=== PATIENT | female | born 1960 | race African-American/Black ===

== ENCOUNTER 2016-08-01 17:45 | Inpatient (IN) | payer MEDICAID ==
--- NOTE | 2016-08-01 18:21 | RAD ---
EXAM DESCRIPTION: XR CHEST 1 VIEW CLINICAL HISTORY: 55-year-old female with shortness of Breath. COMPARISON: 08/24/2015. TECHNIQUE: Single AP view of the chest was obtained portably. FINDINGS: Stable prominent cardiac mediastinal silhouette is within normal limits. Mild cardiomegaly. Interstitial prominence raising the concern for pulmonary vascular congestion and edema. No gross pneumothoraces or large pleural effusions. Left basilar opacification may be secondary to subsegmental atelectasis versus consolidation. Tracheostomy tube terminates at the level of the thoracic inlet. The visualized bones are within normal limits. IMPRESSION: 1. Cardiomegaly and interstitial, central pulmonary vascular prominence raising the concern for pulmonary vascular congestion, edema. 2. Left basilar opacity may be secondary to subsegmental atelectasis versus consolidation. Please correlate with patient clinical findings and followup for resolution. Electronically signed by: Karyn Chen MD 08/01/2016 18:20
[2016-08-01] MEDS ORDERED: cefTRIAXone SODIUM 1 GM VIAL IM ONE (18:53)
[2016-08-01] MEDS ORDERED: SULFA/TRIMETH 800/160 (DS) TAB 1 EA TAB PO ONE (18:53)
--- NOTE | 2016-08-01 18:53 | ED.PDOC ---
History of Present Illness - General Chief Complaint: Neuro Symptoms/Deficits Stated Complaint: Altered mental status Time Seen by Provider: 08/01/16 17:52 Source: patient, EMS notes reviewed, group home records Exam Limitations: no limitations - History of Present Illness Initial Comments: the patient is a 55-year-old Afro-Tu[place] female presenting to emergency room secondary to just not acting right. skilled nursing staff reports she's not been as active today she normally is. She does have a known urinary tract infection which has not had antibiotics started on it. The patient converses quite well. She is able to give me a bunch of her medical history. She states she is feeling pretty well. She has been getting up and assisting with her own care. She is alert and oriented 4. No nausea or vomiting. No shortness of breath. No chest pain. Urinalysis was collected on the and the culture has grown out Escherichia coli sensitive to Bactrim. Timing/Duration: unsure Severity: mild Improving Factors: nothing Worsening Factors: nothing Allergies/Adverse Reactions: Allergies NO KNOWN ALLERGY Allergy (Verified 08/24/15 11:50) Home Medications: Ambulatory Orders ALPRAZolam [Xanax] 0.25 mg PEG Q8H PRN 08/24/15 Atorvastatin Calcium [Lipitor] 10 mg PEG BEDTIME 08/24/15 Diphenhydramine HCl [Complete Allergy] 25 mg PEG Q6H PRN 08/24/15 Esomeprazole Magnesium [Nexium] 40 mg PEG DAILY 08/24/15 Furosemide [Lasix] 120 mg PEG BID 08/24/15 Guaifenesin 400 mg PEG TID 08/24/15 Ipratropium/Albuterol [Duoneb] 3 ml NEB QID 08/24/15 Levetiracetam [Keppra] 500 mg PEG BID 08/24/15 Levofloxacin [Levaquin] 750 mg PO DAILY #7 tab 08/24/15 Levothyroxine Sodium 88 mcg PEG DAILY 08/24/15 Metoprolol Succinate [Metoprolol Succinate ER] 12.5 mg PEG BID 08/24/15 Phenytoin Sodium Cap [Dilantin Cap] 300 mg PEG BID 08/24/15 Zolpidem Tartrate 5 mg PEG BEDTIME 08/24/15 Sulfamethoxazole-Trimethoprim [Bactrim Ds 800-160 mg] 1 tab PO BID #14 tab 08/01 Review of Systems - Review of Systems Review of Systems: 08/01/16 18:52 for new symptoms as reported by the patient Constitutional: States: malaise EENTM: States: no symptoms reported Respiratory: States: no symptoms reported Cardiology: States: no symptoms reported Gastrointestinal/Abdominal: States: no symptoms reported Genitourinary: States: no symptoms reported Musculoskeletal: States: no symptoms reported Skin: States: no symptoms reported Neurological: States: no symptoms reported All other Systems: No Change from Baseline Past Medical History (General) - Patient Medical History Hx Seizures: Yes - Takes Keppra and Dilantin at group home Hx Dementia: Yes Hx of COPD: Yes Hx Cardiac Disorders: Yes Hx Congestive Heart Failure: Yes Hx Pacemaker: No Hx Hypertension: Yes Hx Thyroid Disease: Yes Hx Diabetes: Yes - Humalog Hx Gastroesophageal Reflux: Yes Hx Renal Disease: Yes - Vaccination History Hx Influenza Vaccination: Yes Hx Pneumococcal Vaccination: Yes - Social History Hx Tobacco Use: No Hx Alcohol Use: No Hx Substance Use: No Hx Substance Use Treatment: No Hx Depression: No - Activities of Daily Living [facility] (if applicable[facility]:: [facility] - Triage Comment ED Triage Comment: Unable to get an accurate reason for patient coming to the ER. No neuro deficits observed. Family Medical History - Family History Mother Family History: Unknown Living Status: Hx Family Hypertension: Yes Hx Family Diabetes: Yes Physical Exam - Physical Exam General Appearance: Alert, Comfortable, No apparent distress Eye Exam: bilateral normal Ears, Nose, Throat: normal ENT inspection - poor dentition Neck: non-tender, full range of motion, supple, other - trach is in place Respiratory: chest non-tender, lungs clear, normal breath sounds, no respiratory distress, no accessory muscle use Cardiovascular/Chest: normal peripheral pulses, no edema, other - regular rate Peripheral Pulses: radial,right: 2+, radial,left: 2+ Gastrointestinal/Abdominal: non tender - morbidly obese, soft Rectal Exam: deferred Back Exam: normal inspection - no open lesions Extremity: normal range of motion, non-tender, normal capillary refill, pedal edema - hronic Neurologic: alert, normal mood/affect, oriented x 3 Skin Exam: normal color Comments: Vital Signs - 24 hr 08/01/16 18:24 Temperature 97.3 F L Pulse Rate [ 76 Apical] Respiratory 22 Rate Blood Pressure 94/58 [Right Arm] O2 Sat by Pulse 95 Oximetry repeat blood pressure 117/49 Progress - Progress Progress: 08/01/16 18:54 the patient is a 55-year-old Tu[place] female presenting with a mildly altered mental status according to group home staff. She is alert and oriented 4 currently and pleasantly interactive. She does have urinary tract infection that has not had treatment started. She received a dose of Bactrim here as well as a dose of Rocephin here. Urine culture has grown out Escherichia coli sensitive to Bactrim and she will be placed on that for a seven-day period she does have a very mild worsening of her chronic renal insufficiency and needs to have a repeat Chem-8 performed in 1-2 weeks. She did also have a very mildly elevated potassium level that also needs to be checked on in that timeframe. I do not see any diuretics on her medication list sent here however if she is on any then these need to be held for the next 2-3 days. she needs to increase her fluid intake. She needs to have a repeat urinalysis performed in 2 weeks. ER warnings were given for any worsening. 08/01/16 18:58 - Results/Orders Results/Orders: Laboratory Tests 08/01/16 18:07 WBC 3.8 L RBC 3.88 L Hgb 11.1 L Hct 36.2 MCV 93.2 MCH 28.6 MCHC 30.8 L RDW 14.5 Plt Count 144 MPV 8.4 Absolute Neuts (auto) 2.20 Absolute Lymphs (auto) 0.80 L Absolute Monos (auto) 0.50 Absolute Eos (auto) 0.20 Absolute Basos (auto) 0.00 Neutrophils % 56.8 Lymphocytes % 22.2 Monocytes % 14.1 H Eosinophils % 6.2 H Basophils % 0.7 Sodium 137 Potassium 5.4 H Chloride 98 L Carbon Dioxide 33 H Anion Gap 11.4 L BUN 61 H Creatinine 1.58 H BUN/Creatinine Ratio 38.6 H Random Glucose 80 Serum Osmolality 290.1 Calcium 8.7 Magnesium 2.6 H Total Bilirubin 0.9 AST 14 ALT 12 Alkaline Phosphatase 256 H Creatine Kinase 14 L CK-MB (CK-2) 0.3 CK-MB (CK-2) % Not Reportable Troponin I 0.03 Serum Total Protein 7.2 Albumin 2.9 L Globulin 4.3 H Albumin/Globulin Ratio 0.7 L Phenytoin 7.4 L Urine culture has grown out Escherichia coli sensitive to Bactrim Departure - Departure Clinical Impression: Cystitis Acute renal failure Qualifiers: Acute renal failure type: unspecified Qualifier Code: (N17.9) Acute kidney failure, unspecified Disposition: Discharge to SNF Condition: Fair Departure Forms: ED Discharge - Pt. Copy, Patient Portal Self Enrollment Instructions: DI for Urinary Tract Infection (UTI) Diet: diabetic diet Activity: increase activity as tolerated Referrals: YINA WORLEY [Primary Care Provider] - 1-5 Days Prescriptions: Sulfamethoxazole-Trimethoprim [Bactrim Ds 800-160 mg] 1 tab PO BID #14 tab Home Medications: Ambulatory Orders ALPRAZolam [Xanax] 0.25 mg PEG Q8H PRN 08/24/15 Atorvastatin Calcium [Lipitor] 10 mg PEG BEDTIME 08/24/15 Diphenhydramine HCl [Complete Allergy] 25 mg PEG Q6H PRN 08/24/15 Esomeprazole Magnesium [Nexium] 40 mg PEG DAILY 08/24/15 Furosemide [Lasix] 120 mg PEG BID 08/24/15 Guaifenesin 400 mg PEG TID 08/24/15 Ipratropium/Albuterol [Duoneb] 3 ml NEB QID 08/24/15 Levetiracetam [Keppra] 500 mg PEG BID 08/24/15 Levofloxacin [Levaquin] 750 mg PO DAILY #7 tab 08/24/15 Levothyroxine Sodium 88 mcg PEG DAILY 08/24/15 Metoprolol Succinate [Metoprolol Succinate ER] 12.5 mg PEG BID 08/24/15 Phenytoin Sodium Cap [Dilantin Cap] 300 mg PEG BID 08/24/15 Zolpidem Tartrate 5 mg PEG BEDTIME 08/24/15 Sulfamethoxazole-Trimethoprim [Bactrim Ds 800-160 mg] 1 tab PO BID #14 tab 08/01 Additional Instructions: the patient is a 55-year-old Tuval[place] female presenting with a mildly altered mental status according to group home staff. She is alert and oriented 4 currently and pleasantly interactive. She does have urinary tract infection that has not had treatment started. She received a dose of Bactrim here as well as a dose of Rocephin here. Urine culture has grown out Escherichia coli sensitive to Bactrim and she will be placed on that for a seven-day period she does have a very mild worsening of her chronic renal insufficiency and needs to have a repeat Chem-8 performed in 1-2 weeks. She did also have a very mildly elevated potassium level that also needs to be checked on in that timeframe. I do not see any diuretics on her medication list sent here however if she is on any, then these need to be held for the next 2-3 days. she needs to increase her fluid intake. She needs to have a repeat urinalysis performed in 2 weeks. ER warnings were given for any worsening.
[2016-08-01] MEDS ORDERED: LIDOCAINE 1% 10 ML VIAL INJ ONE (19:16)
[2016-08-01] MEDS ORDERED: LACTATED RINGERS 500 ML IVS ONE (21:43)
--- NOTE | 2016-08-01 22:13 | HP ---
SUPERVISING PHYSICIAN: Sushil Ramirez M.D. CHIEF COMPLAINT: Altered mental status. HISTORY OF PRESENT ILLNESS: This is a 55 year-old female patient who is a resident of [facility] and has been there since October or November of 2015. She has a history of Pickwickian syndrome. It was reported today that the patient had not been participating in her normal activities. She also had somewhat of a change in her mental status. She has a known urinary tract infection but antibiotics have not been started. Her culture and sensitivity came with her to the Emergency Room. The culture grew out Escherichia coli. It is sensitive to Ceftriaxone and resistant to Levofloxacin. I believe that she had been previously prescribed Levofloxacin, but it had not been started. Her daughter was in the E. R. and she told the staff that her mother has not been on the ventilator for over 1 year. She does have a tracheostomy that is capped and she does have a feeding tube. The daughter states that when she becomes unresponsive or acts like her presentation, she frequently has elevated CO2. Her carbon dioxide is usually around 55 to 60%. ABGs were done and her PCO2 was 87% with a pH of 7.2. She was placed on the BiPAP and given several breathing treatments, and her level of consciousness improved. I was called for admission to the hospital. PAST MEDICAL HISTORY: 1. Chronic respiratory failure with hypercapnia. 2. Type 2 diabetes mellitus without complications. 3. Hyperlipidemia. 4. Hypertension. 5. Pulmonary embolism. 6. Unspecified convulsions. 7. Gastroesophageal reflux disease. 8. Age-related osteoporosis. 9. Hypothyroidism. 10. Heart failure of unknown etiology with no echocardiogram on the chart. 11. Chronic kidney disease, unspecified. 12. Chronic obstructive pulmonary disease. 13. Obesity. 14. Atrial flutter. 15. History of pneumonia. 16. History of urinary tract infections. PAST SURGICAL HISTORY: 1. Tracheostomy. 2. Feeding tube. OUTPATIENT MEDICATIONS: Per the EMR and awaiting verification. ALLERGIES: NO KNOWN DRUG ALLERGIES. SOCIAL HISTORY: She lives at [facility]. She does not smoke. She denies any ETOH use. Over 20 years ago she did use illegal drugs. She is from [facility]. REVIEW OF SYSTEMS: Denies fatigue, fever or weight changes. HEENT: Denies sinus problems, ear pain, vision changes or sore throat. RESPIRATORY: Complains of some shortness of breath and mild cough, otherwise denies wheezing. CARDIAC: Denies chest pain, palpitations or tachycardia. ABDOMEN: Denies abdominal pain, nausea, vomiting or diarrhea. EXTREMITIES: She is bedfast but denies any swelling or extremity pain. NEUROLOGIC: She states she has had seizures in the past but has not had them in many years. She denies headaches or dizziness. SKIN: She complains of pain in her sacral area. She said she has had a decubitus ulcer in the past. Her buttocks becomes quite painful. PHYSICAL EXAMINATION: VITAL SIGNS: She is afebrile. Heart rate 73, blood pressure 94/68, respiratory rate 22, O2 sat is 95%. GENERAL: This is a 55 year-old obese black female who is in no acute distress. HEENT: Normocephalic and atraumatic. Pupils are equal and reactive. Oropharynx is clear. NECK: Supple without mass. She does have a tracheostomy in place. CHEST: Lungs are diminished bilaterally. She does have some rhonchi more so in the left upper, middle and lower lobe more so than in the right. There is equal rise and fall of the chest with inspiration and expiration. CARDIOVASCULAR: Regular rate and rhythm. Sinus rhythm on the threat monitoring analyst. ABDOMEN: Soft, nondistended, non-tender. Bowel sounds are positive. She does have a feeding tube in place. EXTREMITIES: Somewhat flaccid. She does have gross motor movements. NEUROLOGIC: She is awake, alert and oriented times three. RADIOLOGY: Chest x-ray shows left basilar opacity may be secondary to subsegmental atelectasis versus consolidation. She has cardiomegaly and interstitial pulmonary vascular prominence raising the concern for pulmonary edema. LABORATORY: PCO2 is 87, pH 7.2. Potassium 5.4, chloride 98, carbon dioxide 33 , BUN 61, creatinine 1.58, magnesium 2.6. Alkaline phosphatase 256. Creatinine kinase 14, albumin 2.9. WBC 3.8, hemoglobin 11.1, hematocrit 36.2, platelets 144. Phenytoin 7.4. Urine culture and sensitivity is on the chart. It is positive for Escherichia coli and sensitive to Ceftriaxone. All other labs and films have been reviewed via the EMR. ASSESSMENT: 1. Acute on chronic hypercarbic respiratory failure. 2. Urinary tract infection with culture and sensitivity showing Escherichia coli sensitive to Rocephin. 3. Left lower lobe pneumonia. 4. Altered mental status. 5. History of Pickwickian syndrome previously on the ventilator for an extended amount of time but has had no mechanical ventilation for greater than 1 year. 6. Open sacral ulcer. 7. Renal insufficiency. 8. Elevated liver enzymes. 9. Hyperkalemia and hypermagnesemia most likely secondary to her renal issues. PLAN: We will admit the patient to the hospital. She will be placed on BiPAP. In the E. R., she could not tolerate it and she pulled off her mask. I will give her light sedation and we will see if we can increase her respiratory rate to where we can pull off some of the CO2. Will also give her Rocephin and Zithromax. Will repeat lab in the morning as well as an ABG. May be beneficial to find her echocardiogram as she has a history of congestive heart failure, but we have no echocardiogram. We will encourage good pulmonary toilet. Monitor the patient closely. Followup as indicted. Hopefully we can send her back to [facility] on p.o[facility]. I have also started some breathing treatments on her as well as sliding scale insulin. Dr. Ramirez is the collaborating physician available for consultation. #[id number] [facility]
[2016-08-01] MEDS ORDERED: ALBUTEROL SULFATE 2.5 MG/3 ML VIAL NEB PRN (23:37)
[2016-08-01] MEDS ORDERED: cefTRIAXone SODIUM 1 GM in SODIUM CHL 0.9% 50ML MIN-BAG+ 50 ML IVPB SCH (23:45)
[2016-08-01] MEDS ORDERED: ENOXAPARIN SODIUM 40 MG/0.4 ML SYG SUBCU SCH (23:45)
[2016-08-01] MEDS ORDERED: IPRATROPIUM/ALBUTEROL 3 ML VIAL INH SCH (23:45)
[2016-08-01] MEDS ORDERED: IV SET AND CAP CHANGE INJ INJ SCH (23:45)
[2016-08-02] MEDS ORDERED: GLUCAGON INJ 1 MG VIAL SUBCU PRN (00:11)
[2016-08-02] MEDS ORDERED: DEXTROSE 50% 25 GM/50 ML SYG IV PRN (00:11)
--- NOTE | 2016-08-02 00:14 | PCM.CORE ---
Physician DVT/VTE - Prophylaxis Currently: Patient already on anticoagulation therapy - Nurse DVT Assessment & Total Each Risk Factor Represents 2 Points: Major Surgery >45 minutes, Confined to bed >72 hours Each Risk Factor Represents 1 Point: Age 41-60 Each Risk Factor is 1 Point: Obesity (BMI >25) DVT Assessment Score: 6 - 5 or more Very High Risk Treatments: Sequential Compression Device - pt unable to ambulate
[2016-08-02] MEDS ORDERED: AZITHROMYCIN IV 500 MG in SODIUM CHLORIDE 0.9% 250ML 250 ML IVPB SCH (01:00)
[2016-08-02] MEDS ORDERED: SODIUM CHL 0.9% 50ML MIN-BAG+ 50 ML IVPB ONE ×3 (01:05→16:50)
[2016-08-02] MEDS ORDERED: cefTRIAXone SODIUM 1 GM VIAL ONE (01:06)
[2016-08-02] MEDS ORDERED: SODIUM CHLORIDE 0.9% 250ML 250 ML ONE (01:08)
[2016-08-02] MEDS ORDERED: AZITHROMYCIN IV 500 MG VIAL IVPB ONE (01:08)
[2016-08-02] MEDS: SODIUM CHLORIDE 0.9% (FLUSH) 10 ML SYG IV PRN ×2 (01:36→06:01)
[2016-08-02] MEDS ORDERED: cefTRIAXone SODIUM 1 GM in SODIUM CHL 0.9% 50ML MIN-BAG+ 50 ML IVPB SCH (06:00)
[2016-08-02] MEDS: INSULIN LISPRO 100 UNITS/ML PEN SUBCU SCH ×4 (07:24→21:26)
[2016-08-02] MEDS ORDERED: PANTOPRAZOLE SODIUM IV 40 MG VIAL IV SCH (08:30)
[2016-08-02] MEDS: SODIUM CHLORIDE 0.9% (FLUSH) 10 ML SYG IV SCH ×2 (08:45→21:25)
[2016-08-02] MEDS ORDERED: PANTOPRAZOLE INJECTION 40 MG in SODIUM CHLORIDE 0.9% 100ML 100 ML IVPB SCH (09:00)
[2016-08-02] MEDS: IPRATROPIUM/ALBUTEROL 3 ML VIAL NEB SCH ×4 (09:05→20:58)
[2016-08-02] MEDS ORDERED: MEROPENEM 500 MG VIAL IVPB ONE ×2 (10:35→16:50)
[2016-08-02] MEDS ORDERED: METHOCARBAMOL 750 MG TAB PO ONE (10:57)
[2016-08-02] MEDS: MEROPENEM 500 MG in SODIUM CHL 0.9% 50ML MIN-BAG+ 50 ML IVPB SCH ×2 (11:00→18:30)
--- NOTE | 2016-08-02 12:27 | PN ---
DATE: 08/02/16 SUBJECTIVE: The patient is resting but is able to awaken to gentle stimuli and is able to carry on a fairly good conversation. She appears to be a little more alert today than last evening on admission. Appetite is fair. She is on the BiPAP machine to assist with the elimination of excessive CO2 and on enough oxygen to try to avoid oversaturating her body to ensure adequate respiratory effort. No nausea and vomiting. senior user experience architect of shortness of breath at this time. OBJECTIVE: Afebrile, pulse 71, blood pressure 95/61, pulse oximetry 98% on BiPAP 32% decreased to a lower O2 level to prevent over saturation. Weight 130.14 kilos. LUNGS: Have some mild expiratory wheezing evident. No significant rales at this time. HEART: Tones somewhat distant. ABDOMEN: Soft yet obese. LABORATORY: Potassium is down from 5.4 to 5.1, CO2 stable at 33 while BUN is 63 , creatinine has improved to 1.24. Glucose 70. Osmolality normal at 294. Alkaline phosphatase improved to 225 and albumin 2.7. Urine culture is positive for Escherichia coli and Klebsiella pneumoniae species which show sensitivity primarily to Meropenem which will be treated for at least a couple of days and then switched over to a third generation cephalosporin for continuation of treatment. Levaquin is stopped and continued on Meropenem at the present time. ASSESSMENT: 1. Chronic obstructive pulmonary disease with significant elevated CO2 levels with hypercapnia requiring BiPAP support and hyperventilation to assist with resolution. 2. Acute urinary tract infection with Escherichia coli and highly resistant Klebsiella pneumoniae species possibly contributing to the altered level of consciousness. 3. Chest x-ray findings suggesting a community acquired left lower lobe infiltrate with treatment to continue. 4. Chronic renal failure with significant prerenal azotemic component with fluid hydration to continue. 5. Sacral ulcer probable decubitus in nature with special attention and wound care to continue. PLAN: Will continue with rotation and wound care to the sacral decubitus. Switch antibiotics from Rocephin and Zithromax to Meropenem to cover both the pneumonia and the dual infection in the urinary tract. Work on increasing strength and abilities, and then after a couple of days of treatment, consider continued treatment at the [facility]. Close followup suggested. #[id number] [facility]
[2016-08-02] MEDS: HYDROcodone 7.5MG/APAP 325MG 1 EA TAB PO PRN (12:47)
[2016-08-02] MEDS: ENOXAPARIN SODIUM 40 MG/0.4 ML SYG SUBCU SCH (21:24)
[2016-08-03] MEDS ORDERED: SODIUM CHL 0.9% 50ML MIN-BAG+ 50 ML IVPB ONE ×4 (02:07→19:17)
[2016-08-03] MEDS ORDERED: MEROPENEM 500 MG VIAL IVPB ONE ×4 (02:07→19:18)
[2016-08-03] MEDS: MEROPENEM 500 MG in SODIUM CHL 0.9% 50ML MIN-BAG+ 50 ML IVPB SCH ×3 (02:20→18:32)
[2016-08-03] MEDS: INSULIN LISPRO 100 UNITS/ML PEN SUBCU SCH ×4 (07:21→21:02)
[2016-08-03] MEDS: HYDROcodone 7.5MG/APAP 325MG 1 EA TAB PO PRN (07:22)
[2016-08-03] MEDS: IPRATROPIUM/ALBUTEROL 3 ML VIAL NEB SCH ×4 (08:25→20:27)
[2016-08-03] MEDS: SODIUM CHLORIDE 0.9% (FLUSH) 10 ML SYG IV SCH ×2 (09:15→20:36)
[2016-08-03] MEDS ORDERED: SOD POLYSTYRENE SULFONATE 15 GM/60 ML BTTL PO ONE (16:22)
[2016-08-03] MEDS ORDERED: ALPRAZolam 0.25 MG TAB PO PRN (16:55)
[2016-08-03] MEDS ORDERED: LEVOTHYROXINE SODIUM 0.088 MG TAB PO SCH (17:00)
--- NOTE | 2016-08-03 17:38 | PN ---
DATE: 08/03/16 SUBJECTIVE: The patient is sitting up in the bed. She has taken her BIPAP off, which is now being used primarily at bedtime and during the day as needed. She is fully awake, alert and communicative. She admits that she does not remember much about her arriving to the Emergency Room from [facility] on the day of admission. Her memory is back to normal today and she feels much better today. She is still encouraged to breathe deeply. Appetite is also improving. She notes she is on oxygen most of the time at the half-way and does not recall the actual amount of oxygen that is being delivered. She has had several spells in the past where her CO2 has been markedly elevated and this was one of the worst. She has not used the BIPAP machine in the past and I feel that the BIPAP machine has assisted her with the work of breathing and also assisted with the elimination of excessive carbon dioxide build up contributing to a lot of her symptoms. OBJECTIVE: VITAL SIGNS: Afebrile. Pulse 74. Blood pressure 107/68. Pulse oximetry reads 99% on BIPAP. Respiratory is specifically instructed to shoot for 90% to 92% instead of the higher percentages to assist with the prevention of hypoventilation. LUNGS: She does have some rhonchi. No significant rales at this time. HEART: Tones are somewhat distant. ABDOMEN: Soft and obese. No significant organomegaly noted. LABORATORY: White count down to 2,600, hemoglobin 10.4. Chemistries show potassium still 5.2, CO2 33, stable. BUN 51, creatinine down to 1.08. Osmolality normal. Glucose 66 fasting. TSH has not been drawn for about 3-1/2 years and will be repeated in the morning. Urine and blood cultures are negative thus far. Last chest x-ray did show some abnormalities and a repeat in the morning will be helpful before able to go home. Of note is that urine culture performed in October of last year showed a combination of E. coli and Klebsiella species. ASSESSMENT: 1. Chronic obstructive pulmonary disease with significantly elevated CO2 levels with hypercapnia requiring BIPAP support and hyperventilation to assist with resolution, symptomatic with decreased level of consciousness. 2. History of urinary tract infection with Escherichia coli and resistant Klebsiella species, which may have contributed to the altered level of consciousness, completing third day course of meropenem. 3. Chest x-ray findings suggesting left lower lobe infiltrate with repeat followup in the morning for clearing. 4. Chronic renal failure with significant prerenal azotemic component with fluid supplementation to continue. 5. Sacral ulcer, probable decubitus in with continued wound care and attention to be made. 6. Exogenous obesity, which also may contribute to some of the respiratory insufficiency. PLAN: The patient has shown some clinical improvement with the use of BIPAP administration. Respiratory department will determine the best settings for the BIPAP as the patient will be now be changed to h.s. and p.r.n. for application. We will have respiratory assist in allowing the patient to learn how to use a straw while the BIPAP is being used in case her mouth is dry and she needs a drink of water. The patient when she goes home is to go home with a mask and tubes of the BIPAP so these will be able to be continued at the [facility] to assist her in preventing this from recurring. Special attention upon her discharge home tomorrow to prevent oxygen over utilization which can contribute to the CO2 retention. Continue with bronchodilators and pulmonary hygiene. When she goes home tomorrow to [facility], we will ask physical therapy to evaluate and provide strengthening and activities of daily living training exercises to get her to the point to assist with weight reduction, but also improved ability to care for herself and reduce fall risk. Continue with sacral ulcer wound care at the half-way. Stop Merrem tomorrow and since urine culture has failed to show any significant growth to this point, we will also remove Stock catheter in the morning and will have continued followup at the half-way with repeat urinalysis in approximately two weeks. Recheck chest x-ray in the morning for clarification and reevaluation of previously noted infiltrates, left lower lobe. Close followup at [facility] by Dr. Michael. Continue with BIPAP utilization which hopefully will assist and close followup necessary. #[id number] [facility]
[2016-08-03] MEDS ORDERED: levETIRAcetam 250 MG TAB ONE (19:17)
[2016-08-03] MEDS: levETIRAcetam 250 MG TAB PO SCH (20:37)
[2016-08-03] MEDS: ENOXAPARIN SODIUM 40 MG/0.4 ML SYG SUBCU SCH (20:37)
[2016-08-03] MEDS: PHENYTOIN SODIUM 100 MG CAP PO SCH (20:37)
[2016-08-04] MEDS: MEROPENEM 500 MG in SODIUM CHL 0.9% 50ML MIN-BAG+ 50 ML IVPB SCH ×2 (02:30→10:35)
[2016-08-04] MEDS ORDERED: LEVOTHYROXINE SODIUM 0.088 MG TAB PO SCH (06:30)
[2016-08-04] MEDS ORDERED: SODIUM CHL 0.9% 50ML MIN-BAG+ 50 ML IVPB ONE (07:24)
[2016-08-04] MEDS ORDERED: MEROPENEM 500 MG VIAL IVPB ONE (07:24)
[2016-08-04] MEDS: INSULIN LISPRO 100 UNITS/ML PEN SUBCU SCH ×2 (07:28→11:22)
[2016-08-04] MEDS: IPRATROPIUM/ALBUTEROL 3 ML VIAL NEB SCH (08:38)
[2016-08-04] MEDS: levETIRAcetam 250 MG TAB PO SCH (08:41)
[2016-08-04] MEDS: SODIUM CHLORIDE 0.9% (FLUSH) 10 ML SYG IV SCH (08:41)
[2016-08-04] MEDS: PHENYTOIN SODIUM 100 MG CAP PO SCH (08:41)
[2016-08-04] MEDS: HYDROcodone 7.5MG/APAP 325MG 1 EA TAB PO PRN (09:44)
[2016-08-04 10:21] VITALS: BP 122/71; TEMP 97.1; O2SAT 91
--- NOTE | 2016-08-04 11:13 | RAD ---
Study: Single Frontal View of the Chest. Indication:CO2 retention Comparison: August 01, 2016. Impression: Stable tracheostomy tube. Cardiomegaly. Central pulmonary vascular congestion is mild and is slightly improved compared to the prior. Underlying pneumonia not excluded, particular at the right hilar region. Short-term followup recommended. Tiny left pleural effusion suspected. No pneumothorax. Electronically signed by: Larry Drummond MD 08/04/2016 11:11
--- NOTE | 2016-08-05 16:49 | DS ---
SUPERVISING PHYSICIAN: Ken Bronson M.D. DISCHARGE DIAGNOSIS: 1. Acute hypercarbic respiratory failure with longstanding history of chronic obstructive pulmonary disease. 2. Acute on chronic obstructive pulmonary disease with significantly elevated CO2 levels requiring BiPAP support and hyperventilation to assist with resolution. She was symptomatic with decreased level of consciousness on admission. 3. History of urinary tract infection with Escherichia coli and resistant Klebsiella species which may have contributed to the altered level of consciousness currently on Meropenem. 4. Left lower lobe pneumonia. 5. Chronic renal failure. 6. Elevated liver enzymes. 7. Hyperkalemia and hypermagnesemia that are most likely secondary to her renal issues and they have now mostly resolved. 8. Open sacral ulcer. 9. Morbid obesity. HISTORY OF PRESENT ILLNESS: This is a 55 year-old female patient who is a resident of [facility]. She has been living in [facility] since October or November of 2015. She has a history of Pickwickian syndrome and has been on the ventilator off and on over the years, but has not been on the ventilator for over a year. It was reported that the staff stated that over the last few days she has had a change in her mental status and has not bee able to participate in her normal activities. She has a known urinary tract infection for which antibiotics had not been started at the time of admission. It was also found that her PCO2 was 87 and her baseline of CO2 was usually around 55 to 60. She also had a pH of 7.2. She was given breathing treatments and initially placed on Ceftriaxone and Levaquin. She was placed on the BiPAP and her level of consciousness somewhat improved. She was admitted to the Medical/Surgical floor. HOSPITAL COURSE: Over the course of her hospital stay, her mental status improved to the point where today she is alert and oriented times three. Her WBCs remained slightly low but her hemoglobin and hematocrit are stable at 10.3 and 33.3. Potassium is now 4.7 and creatinine is 0.94. TSH is 3.39. Most of her other lab values have returned to baseline. Chest x-ray today shows mild pulmonary vascular congestion and has slightly improved from the prior x-ray. She will need short term followup. DISCHARGE PLAN: She will be discharged back to [facility] today. She is to use the BiPAP at night if needed. She will resume her previous medications. She completed a course of Meropenem in the hospital. She will not need to be discharged on any new antibiotics. She will be discharged in good condition. She is to resume her previous activity. She will have a followup with Dr. Michael at [facility]. Dr. Bronson is the collaborating physician available for consultation. DISCHARGE MEDICATIONS: 1. Xanax. 2. DuoNeb. 3. Dilantin. 4. Guaifenesin. 5. Levothyroxine. 6. Keppra. 7. Nexium. 8. Diphenhydramine. 9. Lipitor. 10. Zolpidem. 11. Bactrim. 12. Tylenol suppository. 13. Vitamin B12. 14. Isopto Tears. 15. Acetaminophen. 16. Humalog insulin. 17. Lidocaine. 18. Loperamide. 19. Promethazine. 20. [place] oil. 21. Prostat. #[id number] [facility]
== END 2016-08-04 13:16 | DRG 189 ==
LOC: ER 17:45 → MS 22:12 → OBSVTOIN 22:12
PROVIDERS: ADMIT Nurse Practitioner Acute Care; ATTEND Nurse Practitioner Acute Care
DX: J96.22 Acute and chronic respiratory failure with hypercapnia (principal); J18.9 Pneumonia, unspecified organism; J44.1 Chronic obstructive pulmonary disease with (acute) exacerbation; N39.0 Urinary tract infection, site not specified; E66.2 Morbid (severe) obesity with alveolar hypoventilation; N17.9 Acute kidney failure, unspecified; Z68.42 Body mass index [BMI] 45.0-49.9, adult; J96.21 Acute and chronic respiratory failure with hypoxia; B96.20 Unspecified Escherichia coli [E. coli] as the cause of diseases classified elsewhere; B96.1 Klebsiella pneumoniae [K. pneumoniae] as the cause of diseases classified elsewhere; Z16.23 Resistance to quinolones and fluoroquinolones; I12.9 Hypertensive chronic kidney disease with stage 1 through stage 4 chronic kidney disease, or unspecified chronic kidney disease; N18.9 Chronic kidney disease, unspecified; R74.8 Abnormal levels of other serum enzymes; E87.5 Hyperkalemia; E83.41 Hypermagnesemia; L89.159 Pressure ulcer of sacral region, unspecified stage; E11.9 Type 2 diabetes mellitus without complications; E78.5 Hyperlipidemia, unspecified; K21.9 Gastro-esophageal reflux disease without esophagitis; M81.0 Age-related osteoporosis without current pathological fracture; Z99.81 Dependence on supplemental oxygen; Z79.899 Other long term (current) drug therapy; Z93.0 Tracheostomy status; Z93.1 Gastrostomy status; Z86.711 Personal history of pulmonary embolism

== ENCOUNTER 2017-07-07 23:36 | Emergency (ER) | payer MEDICAID ==
--- NOTE | 2017-07-07 23:49 | ED.PDOC ---
History of Present Illness - General Chief Complaint: Neuro Symptoms/Deficits Stated Complaint: altered mental status Time Seen by Provider: 07/07/17 23:44 Source: patient, RN notes reviewed, Vital Signs reviewed, EMS notes reviewed Exam Limitations: no limitations Additional Information: Pt transported to ER by EMS. Pt resided in [place]. Reportedly she was poorly responsive and had an elevated CO2 level. She is a former Trach/Vent patient who is supposed to be using CPAP at night. Patient responsive in no distress upon arrival. She had POX [facility] low 80s [facility], but POX alan to 95% on 4 L NC once stabilized in [facility]. Plan is for ABG and CXR to assess for status of pulmonary parenchyma and acid- base balance. If relatively normal/stable will send patient back to [place]. 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 arrival Improving Factors: other - Positioning and supplemental oxygen Worsening Factors: other - loss of supplemental oxygenation and/or CPAP Associated Symptoms: denies symptoms Allergies/Adverse Reactions: Allergies NO KNOWN ALLERGY Allergy (Verified 07/07/17 23:59) Home Medications: Ambulatory Orders ALPRAZolam [Xanax] 0.25 mg PO Q8H PRN 08/24/15 Atorvastatin Calcium [Lipitor] 10 mg PO BEDTIME 08/24/15 Diphenhydramine HCl [Complete Allergy] 25 mg PO Q4H PRN 08/24/15 Esomeprazole Magnesium [Nexium] 40 mg PO DAILY@0630 08/24/15 Guaifenesin 400 mg PO TID 08/24/15 Ipratropium/Albuterol [Duoneb] 3 ml NEB QID 08/24/15 Levetiracetam [Keppra] 500 mg PO BID 08/24/15 Levothyroxine Sodium 88 mcg PO DAILY@0700 08/24/15 Phenytoin Sodium Cap Extended [Dilantin Cap] 300 mg PO BID 08/24/15 Zolpidem Tartrate 5 mg PO BEDTIME PRN 08/24/15 Sulfamethoxazole-Trimethoprim [Bactrim Ds 800-160 mg] 1 tab PO BID #14 tab 08/01 Acetaminophen Suppository [Tylenol Suppository] 650 mg [place] Q6H PRN 08/02/16 Acetaminophen [Tylenol] 650 mg PO Q6H PRN 08/02/16 Balsam [place] Oil [Venelex] 1 applic TOP DAILY 08/02/16 Cyanocobalamin [B12] 1,000 mcg PO DAILY 08/02/16 Hypromellose (Ophth) [Isopto Tears] 1 drop BOTH_EYES TID PRN 08/02/16 Insulin Lispro [Humalog] 0 unit SC PRN PRN 08/02/16 Ipratropium/Albuterol [Duoneb] 3 ml INH Q6H PRN 08/02/16 Lidocaine 2% Mpf [Xylocaine 2% MPF] 2 ml INH Q4H PRN 08/02/16 Loperamide HCl [Imodium A-D] 2 mg PO Q4H PRN 08/02/16 Non-Formulary Medication 30 ml GT BID 08/02/16 Promethazine HCl 25 mg PO Q6H PRN 08/02/16 Review of Systems - Review of Systems Constitutional: States: no symptoms reported EENTM: States: no symptoms reported Respiratory: States: no symptoms reported Cardiology: States: edema - bilateal lower extremities - chronic Gastrointestinal/Abdominal: States: no symptoms reported Genitourinary: States: no symptoms reported Musculoskeletal: States: no symptoms reported Skin: States: no symptoms reported Neurological: States: no symptoms reported Endocrine: States: no symptoms reported Hematologic/Lymphatic: States: no symptoms reported Past Medical History (General) - Patient Medical History Hx Seizures: Yes Hx Stroke: No Hx Dementia: Yes Hx Asthma: No Hx of COPD: No Hx Cardiac Disorders: Yes Hx Congestive Heart Failure: No Hx Pacemaker: No Hx Hypertension: No Hx Thyroid Disease: Yes Hx Diabetes: Yes Hx Gastroesophageal Reflux: Yes Hx Renal Disease: Yes Hx MRSA: No Hx Other PMH: Yes - Morbidly Obese - Vaccination History Hx Influenza Vaccination: Yes Hx Pneumococcal Vaccination: Yes - Social History Hx Tobacco Use: No Hx Alcohol Use: No Hx Substance Use: No Hx Substance Use Treatment: No Hx Depression: No Hx Physical Abuse: No Hx Emotional Abuse: No Family Medical History - Family History Mother Family History: Unknown Living Status: Hx Family Hypertension: Yes Hx Family Diabetes: Yes Physical Exam - Physical Exam General Appearance: No apparent distress, Obese Eye Exam: bilateral normal Ears, Nose, Throat: hearing grossly normal, normal ENT inspection, normal pharynx Neck: non-tender, full range of motion, supple, normal inspection Respiratory: lungs clear, normal breath sounds, no respiratory distress, no accessory muscle use Cardiovascular/Chest: normal peripheral pulses, regular rate, rhythm, other - bilateral lower extremity edema Gastrointestinal/Abdominal: non tender, soft Back Exam: normal inspection Extremity: normal range of motion, non-tender, normal inspection 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 CXR stable compared to previous images. ABG with permissive hypercapnea. 07/08/17 00:29 Pt mentating well and in no distress. She is stable and ready for transfer back to [place]. - Results/Orders Results/Orders: Laboratory Results - last 24 hr 07/07/17 23:55 pCO2 77 H pO2 76 L HCO3 33.3 ABG pH 7.260 L* ABG O2 Saturation 96.9 ABG Base Excess 4.5 ABG Deoxyhemoglobin 3.0 Oxyhemoglobin % 94.3 Carboxyhemoglobin % 1.4 Methemoglobin % Sat 1.3 Calc Total Hemoglobin 11.8 L CXR Report: COMPARISON: Chest x-ray: 08/04/2016. FINDINGS: Again noted is a right perihilar airspace opacity. The heart is enlarged. There is no pneumothorax or pleural effusion. There is mild elevation the right hemidiaphragm. The tracheostomy tube is no longer visualized. The bones are unremarkable. IMPRESSION: Right perihilar airspace opacity, similar to the prior. This may represent pneumonia or possibly a mass. A CT scan may be useful in further evaluation. - EKG/XRAY/CT XRAY: chest Departure - Departure Clinical Impression: Hypercapnia Time of Disposition: 00:42 Disposition: Discharge to SNF Condition: Fair Departure Forms: ED Discharge - Pt. Copy, Patient Portal Self Enrollment Referrals: YINA WORLEY [Primary Care Provider] - 1-5 Days Home Medications: Ambulatory Orders ALPRAZolam [Xanax] 0.25 mg PO Q8H PRN 08/24/15 Atorvastatin Calcium [Lipitor] 10 mg PO BEDTIME 08/24/15 Diphenhydramine HCl [Complete Allergy] 25 mg PO Q4H PRN 08/24/15 Esomeprazole Magnesium [Nexium] 40 mg PO DAILY@0630 08/24/15 Guaifenesin 400 mg PO TID 08/24/15 Ipratropium/Albuterol [Duoneb] 3 ml NEB QID 08/24/15 Levetiracetam [Keppra] 500 mg PO BID 08/24/15 Levothyroxine Sodium 88 mcg PO DAILY@0700 08/24/15 Phenytoin Sodium Cap Extended [Dilantin Cap] 300 mg PO BID 08/24/15 Zolpidem Tartrate 5 mg PO BEDTIME PRN 08/24/15 Sulfamethoxazole-Trimethoprim [Bactrim Ds 800-160 mg] 1 tab PO BID #14 tab 08/01 Acetaminophen Suppository [Tylenol Suppository] 650 mg WI Q6H PRN 08/02/16 Acetaminophen [Tylenol] 650 mg PO Q6H PRN 08/02/16 Balsam [place] Oil [Venelex] 1 applic TOP DAILY 08/02/16 Cyanocobalamin [B12] 1,000 mcg PO DAILY 08/02/16 Hypromellose (Ophth) [Isopto Tears] 1 drop BOTH_EYES TID PRN 08/02/16 Insulin Lispro [Humalog] 0 unit SC PRN PRN 08/02/16 Ipratropium/Albuterol [Duoneb] 3 ml INH Q6H PRN 08/02/16 Lidocaine 2% Mpf [Xylocaine 2% MPF] 2 ml INH Q4H PRN 08/02/16 Loperamide HCl [Imodium A-D] 2 mg PO Q4H PRN 08/02/16 Non-Formulary Medication 30 ml GT BID 08/02/16 Promethazine HCl 25 mg PO Q6H PRN 08/02/16 Additional Instructions: Continuous supplemental oxygen and night time BiPap compliance is a must. Recommend decreasing BiPap pressures in order to increase compliance with BiPap utilization (recommend trying 12 (Insp Pressure)/6 (PEEP) Permissive hypercapnea is acceptable as long as patient's mental status is at baseline. Continue weight loss efforts to decrease confounding restrictive lung disease. Continue aggressive Physical Therapy and Respiratory Therapy. Recommend review Chest X-ray findings and ABG with PCM and/or Ad Setter as an outpatient.
[2017-07-07 23:59] VITALS: TEMP 97.6
--- NOTE | 2017-07-08 00:04 | RAD ---
EXAM: Single view chest. INDICATION: Poorly responsive. COMPARISON: Chest x-ray: 08/04/2016. FINDINGS: Again noted is a right perihilar airspace opacity. The heart is enlarged. There is no pneumothorax or pleural effusion. There is mild elevation the right hemidiaphragm. The tracheostomy tube is no longer visualized. The bones are unremarkable. IMPRESSION: Right perihilar airspace opacity, similar to the prior. This may represent pneumonia or possibly a mass. A CT scan may be useful in further evaluation. Electronically signed by: Forrest Avelar MD 07/08/2017 12:03 AM [facility] Workstation: [id number]
[2017-07-08 00:53] VITALS: BP 97/67; O2SAT 97
== END 2017-07-08 01:11 ==
LOC: ER 23:36
DX: R06.89 Other abnormalities of breathing (principal); R41.82 Altered mental status, unspecified; I51.9 Heart disease, unspecified; R56.9 Unspecified convulsions; F03.90 Unspecified dementia, unspecified severity, without behavioral disturbance, psychotic disturbance, mood disturbance, and anxiety; E11.22 Type 2 diabetes mellitus with diabetic chronic kidney disease; N18.9 Chronic kidney disease, unspecified; E07.9 Disorder of thyroid, unspecified; K21.9 Gastro-esophageal reflux disease without esophagitis; E66.01 Morbid (severe) obesity due to excess calories; Z68.43 Body mass index [BMI] 50.0-59.9, adult; Z79.4 Long term (current) use of insulin; Z79.899 Other long term (current) drug therapy

== ENCOUNTER 2017-07-29 22:50 | Emergency (ER) | payer MEDICAID ==
--- NOTE | 2017-07-29 23:12 | ED.PDOC ---
History of Present Illness - General Chief Complaint: General Stated Complaint: somnolence/low [id number] Time Seen by Provider: 07/29/17 23:03 Source: EMS notes reviewed Exam Limitations: no limitations - History of Present Illness Initial Comments: Delma East 56 y/o female patient at [facility] brought by EMS after they were called at the facility after she was noted to be somnolent and with low Sao2 .She is supposed to be on cpap for her VIN with settings on 22 10 but refused to wear it tonight she then desaturated.After she was loaded in the ambulance she was more alert,talking to the ambulance crew and on her arrival here at ER answering all questions asked by nurses.Had also finished cipro recently for leg cellulitis. Timing/Duration: 1-3 hours Severity: moderate Improving Factors: other - oxygen/nasal cannula Worsening Factors: nothing Associated Symptoms: shortness of breath Allergies/Adverse Reactions: Allergies NO KNOWN ALLERGY Allergy (Verified 07/29/17 23:28) Home Medications: Ambulatory Orders ALPRAZolam [Xanax] 0.25 mg PO Q8H PRN 08/24/15 Atorvastatin Calcium [Lipitor] 10 mg PO BEDTIME 08/24/15 Diphenhydramine HCl [Complete Allergy] 25 mg PO Q4H PRN 08/24/15 Esomeprazole Magnesium [Nexium] 40 mg PO DAILY@0630 08/24/15 Guaifenesin 400 mg PO TID 08/24/15 Ipratropium/Albuterol [Duoneb] 3 ml NEB QID 08/24/15 Levetiracetam [Keppra] 500 mg PO BID 08/24/15 Levothyroxine Sodium 88 mcg PO DAILY@0700 08/24/15 Phenytoin Sodium Cap Extended [Dilantin Cap] 300 mg PO BID 08/24/15 Zolpidem Tartrate 5 mg PO BEDTIME PRN 08/24/15 Sulfamethoxazole-Trimethoprim [Bactrim Ds 800-160 mg] 1 tab PO BID #14 tab 08/01 Acetaminophen Suppository [Tylenol Suppository] 650 mg HI Q6H PRN 08/02/16 Acetaminophen [Tylenol] 650 mg PO Q6H PRN 08/02/16 Balsam [place] Oil [Venelex] 1 applic TOP DAILY 08/02/16 Cyanocobalamin [B12] 1,000 mcg PO DAILY 08/02/16 Hypromellose (Ophth) [Isopto Tears] 1 drop BOTH_EYES TID PRN 08/02/16 Insulin Lispro [Humalog] 0 unit SC PRN PRN 08/02/16 Ipratropium/Albuterol [Duoneb] 3 ml INH Q6H PRN 08/02/16 Lidocaine 2% Mpf [Xylocaine 2% MPF] 2 ml INH Q4H PRN 08/02/16 Loperamide HCl [Imodium A-D] 2 mg PO Q4H PRN 08/02/16 Non-Formulary Medication 30 ml GT BID 08/02/16 Promethazine HCl 25 mg PO Q6H PRN 08/02/16 Review of Systems - Review of Systems Constitutional: States: no symptoms reported EENTM: States: no symptoms reported Respiratory: States: see HPI Cardiology: States: no symptoms reported Gastrointestinal/Abdominal: States: no symptoms reported Genitourinary: States: no symptoms reported Musculoskeletal: States: no symptoms reported Skin: States: no symptoms reported Neurological: States: see HPI Past Medical History (General) - Patient Medical History Hx Seizures: Yes Hx Stroke: No Hx Dementia: Yes Hx Asthma: No Hx of COPD: No Hx Cardiac Disorders: Yes Hx Congestive Heart Failure: No Hx Pacemaker: No Hx Hypertension: No Hx Thyroid Disease: Yes Hx Diabetes: Yes Hx Gastroesophageal Reflux: Yes Hx Renal Disease: Yes Hx of HIV: No Hx MRSA: No Hx Other PMH: Yes - VIN Surgical History: other - tracheostomy,hysterectomy - Vaccination History Hx Influenza Vaccination: Yes Hx Pneumococcal Vaccination: Yes - Social History Hx Tobacco Use: No Hx Alcohol Use: No Hx Substance Use: No Hx Substance Use Treatment: No Hx Depression: No Hx Physical Abuse: No Hx Emotional Abuse: No - Activities of Daily Living Patient Lives Alone: No Care Home/Assisted Living (if applicable):: [facility] Ability: Minimum Assistance Eating (Feeding) Ability: Independent Toileting Ability: Moderate Assistance - wheelchair bound - Female History Patient is a Female of Child Bearing Age (10 -59 yrs old): No Family Medical History - Family History Mother Family History: Unknown Living Status: Hx Family Hypertension: Yes Hx Family Diabetes: Yes Physical Exam - Physical Exam General Appearance: Alert, Comfortable, No apparent distress Eye Exam: bilateral normal Ears, Nose, Throat: hearing grossly normal, normal pharynx Neck: non-tender, supple, other - scars from tracheostomy Respiratory: rhonchi Cardiovascular/Chest: normal peripheral pulses, regular rate, rhythm Peripheral Pulses: radial,right: 2+, radial,left: 2+ Gastrointestinal/Abdominal: normal bowel sounds, non tender, soft, no organomegaly Back Exam: no CVA tenderness, no vertebral tenderness Extremity: pedal edema - 2+ bilaterally Neurologic: alert, normal mood/affect Skin Exam: warm/dry Progress - Progress Progress: 07/30/17 00:12 Last Vital Signs Temp 98 F 07/29/17 23:08 Pulse 74 07/29/17 23:08 Resp 20 07/29/17 23:08 BP 101/66 07/29/17 23:08 Pulse Ox 96 07/29/17 23:08 07/30/17 00:23 Last Vital Signs Temp 98 F 07/29/17 23:08 Pulse 74 07/29/17 23:08 Resp 20 07/29/17 23:08 BP 101/66 07/29/17 23:08 Pulse Ox 96 07/29/17 23:08 - Results/Orders Results/Orders: Laboratory Tests 07/29/17 07/29/17 23:15 23:15 WBC 3.5 L RBC 4.13 L Hgb 12.1 Hct 39.8 MCV 96.3 MCH 29.2 MCHC 30.5 L RDW 15.0 H Plt Count 151 MPV 7.4 Absolute Neuts (auto) 1.30 L Absolute Lymphs (auto) 1.00 Absolute Monos (auto) 1.00 H Absolute Eos (auto) 0.30 Absolute Basos (auto) 0.00 Neutrophils % 35.6 L Lymphocytes % 28.8 Monocytes % 27.0 H Eosinophils % 7.4 H Basophils % 1.2 Sodium 131 L Potassium 5.6 H Chloride 93 L Carbon Dioxide 32 H Anion Gap 11.6 L BUN 53 H Creatinine 1.88 H BUN/Creatinine Ratio 28.2 H Random Glucose 72 Serum Osmolality 275.6 Calcium 8.1 L Total Bilirubin 1.6 H AST 16 ALT 10 Alkaline Phosphatase 153 H Serum Total Protein 7.1 Albumin 2.6 L Globulin 4.5 H Albumin/Globulin Ratio 0.6 L - EKG/XRAY/CT XRAY: chest - pleural effusion right,opacity Departure - Departure Clinical Impression: Somnolence, Obstructive sleep apnea on CPAP, Pleural effusion, right Congestive heart failure (CHF) Qualifiers: Congestive heart failure type: unspecified congestive heart failure type Congestive heart failure chronicity: unspecified congestive heart failure chronicity Qualified Code(s): I50.9 - Heart failure, unspecified Obesity due to excess calories with serious comorbidity Qualifiers: Obesity classification: adult class 3 (BMI >= 40) Body mass index: BMI 40.0- 44.9 Qualified Code(s): E66.09 - Other obesity due to excess calories; Z68.41 - Body mass index (BMI) 40.0-44.9, adult Time of Disposition: 00:29 Disposition: Discharge to SNF Condition: Fair Departure Forms: ED Discharge - Pt. Copy, Patient Portal Self Enrollment Referrals: YINA WORLEY [Primary Care Provider] - 1-2 Weeks Home Medications: Ambulatory Orders ALPRAZolam [Xanax] 0.25 mg PO Q8H PRN 08/24/15 Atorvastatin Calcium [Lipitor] 10 mg PO BEDTIME 08/24/15 Diphenhydramine HCl [Complete Allergy] 25 mg PO Q4H PRN 08/24/15 Esomeprazole Magnesium [Nexium] 40 mg PO DAILY@0630 08/24/15 Guaifenesin 400 mg PO TID 08/24/15 Ipratropium/Albuterol [Duoneb] 3 ml NEB QID 08/24/15 Levetiracetam [Keppra] 500 mg PO BID 08/24/15 Levothyroxine Sodium 88 mcg PO DAILY@0700 08/24/15 Phenytoin Sodium Cap Extended [Dilantin Cap] 300 mg PO BID 08/24/15 Zolpidem Tartrate 5 mg PO BEDTIME PRN 08/24/15 Sulfamethoxazole-Trimethoprim [Bactrim Ds 800-160 mg] 1 tab PO BID #14 tab 08/01 Acetaminophen Suppository [Tylenol Suppository] 650 mg HI Q6H PRN 08/02/16 Acetaminophen [Tylenol] 650 mg PO Q6H PRN 08/02/16 Balsam [place] Oil [Venelex] 1 applic TOP DAILY 08/02/16 Cyanocobalamin [B12] 1,000 mcg PO DAILY 08/02/16 Hypromellose (Ophth) [Isopto Tears] 1 drop BOTH_EYES TID PRN 08/02/16 Insulin Lispro [Humalog] 0 unit SC PRN PRN 08/02/16 Ipratropium/Albuterol [Duoneb] 3 ml INH Q6H PRN 08/02/16 Lidocaine 2% Mpf [Xylocaine 2% MPF] 2 ml INH Q4H PRN 08/02/16 Loperamide HCl [Imodium A-D] 2 mg PO Q4H PRN 08/02/16 Non-Formulary Medication 30 ml GT BID 08/02/16 Promethazine HCl 25 mg PO Q6H PRN 08/02/16 Additional Instructions: Continue with all current medications;Need to reset bipap settings I-12/E-5 follow up with primary Md in am
[2017-07-29] MEDS: LEVALBUTEROL NEBS 1.25 MG/3 ML VIAL NEB ONE (23:45)
--- NOTE | 2017-07-29 23:56 | RAD ---
EXAM DESCRIPTION: Chest,1 View CLINICAL HISTORY: 56 years, Female, cough COMPARISON: Chest x-ray dated 07/07/2017 FINDINGS: A single frontal chest radiograph was performed. Filter effect involves the right mid to lower hemithorax. The right costophrenic sulcus is obscured. The left costophrenic sulcus is not well seen given overlying soft tissues. Aortic arch is calcified. The cardiac silhouette is enlarged with possible mild central pulmonary vascular congestion. The right pleural effusion is new since the prior study. IMPRESSION: Large right pleural effusion with adjacent airspace opacity. Possible mild central pulmonary vascular congestion Electronically signed by: Rajani Hernandez MD 07/29/2017 11:55 PM PANEL BEATER
[2017-07-30] MEDS: BUMETANIDE 0.25 MG/ML VIAL IV ONE (01:49)
[2017-07-30] MEDS ORDERED: SOD POLYSTYRENE SULFONATE 15 GM/60 ML BTTL ONE (03:53)
[2017-07-30] MEDS: SOD POLYSTYRENE SULFONATE 15 GM/60 ML BTTL PO ONE (03:54)
[2017-07-30 04:17] VITALS: BP 106/67; TEMP 97.9; O2SAT 97
== END 2017-07-30 04:00 ==
LOC: ER 22:50
DX: G47.33 Obstructive sleep apnea (adult) (pediatric) (principal); E66.09 Other obesity due to excess calories; Z68.41 Body mass index [BMI] 40.0-44.9, adult; J90 Pleural effusion, not elsewhere classified; I50.9 Heart failure, unspecified; E11.9 Type 2 diabetes mellitus without complications; Z99.81 Dependence on supplemental oxygen; Z79.899 Other long term (current) drug therapy
CPT/HCPCS: 36415; 36600; 71045; 80053; 82803; 82805; 85025; 94640; 94660; 94770; J3490; J7614

== ENCOUNTER 2017-09-06 14:38 | Emergency (ER) | payer MEDICAID ==
[2017-09-06] MEDS ORDERED: FUROSEMIDE INJ 40 MG/4 ML VIAL IV ONE (14:52)
--- NOTE | 2017-09-06 15:09 | RAD ---
EXAM DESCRIPTION: Chest,1 View CLINICAL HISTORY: 56 years Female, sob COMPARISON: July 29, 2017 TECHNIQUE: AP portable chest. FINDINGS: Interval slight improvement on the right with decreased density in the right midlung. Persistent basilar density/effusion. Left lung appears clear. Marked cardiomegaly with at least mild vascular congestion. Vascular congestion appears slightly less. IMPRESSION: Overall improved but still abnormal study with decreasing vascular congestion/CHF Electronically signed by: Mike So MD 09/06/2017 3:08 PM RADIOCHEMICAL TECHNICIAN
[2017-09-06 15:25] VITALS: TEMP 98.3; O2SAT 100
--- NOTE | 2017-09-06 15:52 | ED.PDOC ---
History of Present Illness - General Chief Complaint: Cardiovascular Problem Stated Complaint: elevated bnp yesterday; edema Time Seen by Provider: 09/06/17 14:51 Source: patient Exam Limitations: no limitations - History of Present Illness Timing/Duration: resolved prior to arrival - felt bad this am Severity: moderate Location: abdomen Activities at Onset: none Improving Factors: other - bowel movement Worsening Factors: nothing Allergies/Adverse Reactions: Allergies NO KNOWN ALLERGY Allergy (Verified 07/29/17 23:28) Home Medications: Ambulatory Orders ALPRAZolam [Xanax] 0.25 mg PO Q8H PRN 08/24/15 Atorvastatin Calcium [Lipitor] 10 mg PO BEDTIME 08/24/15 Diphenhydramine HCl [Complete Allergy] 25 mg PO Q4H PRN 08/24/15 Esomeprazole Magnesium [Nexium] 40 mg PO DAILY@0630 08/24/15 Guaifenesin 400 mg PO TID 08/24/15 Ipratropium/Albuterol [Duoneb] 3 ml NEB QID 08/24/15 Levetiracetam [Keppra] 500 mg PO BID 08/24/15 Levothyroxine Sodium 88 mcg PO DAILY@0700 08/24/15 Phenytoin Sodium Cap Extended [Dilantin Cap] 300 mg PO BID 08/24/15 Zolpidem Tartrate 5 mg PO BEDTIME PRN 08/24/15 Sulfamethoxazole-Trimethoprim [Bactrim Ds 800-160 mg] 1 tab PO BID #14 tab 08/01 Acetaminophen Suppository [Tylenol Suppository] 650 mg [place] Q6H PRN 08/02/16 Acetaminophen [Tylenol] 650 mg PO Q6H PRN 08/02/16 Balsam [place] Oil [Venelex] 1 applic TOP DAILY 08/02/16 Cyanocobalamin [B12] 1,000 mcg PO DAILY 08/02/16 Hypromellose (Ophth) [Isopto Tears] 1 drop BOTH_EYES TID PRN 08/02/16 Insulin Lispro [Humalog] 0 unit SC PRN PRN 08/02/16 Ipratropium/Albuterol [Duoneb] 3 ml INH Q6H PRN 08/02/16 Lidocaine 2% Mpf [Xylocaine 2% MPF] 2 ml INH Q4H PRN 08/02/16 Loperamide HCl [Imodium A-D] 2 mg PO Q4H PRN 08/02/16 Non-Formulary Medication 30 ml GT BID 08/02/16 Promethazine HCl 25 mg PO Q6H PRN 08/02/16 Review of Systems - Review of Systems Constitutional: Denies: chills, fever EENTM: Denies: nose congestion, throat pain Respiratory: States: cough, short of breath Cardiology: States: edema. Denies: chest pain Gastrointestinal/Abdominal: States: abdominal pain, constipation, nausea Genitourinary: Denies: dysuria, frequency Musculoskeletal: States: no symptoms reported Skin: Denies: rash Neurological: Denies: headache, weakness Endocrine: States: no symptoms reported Hematologic/Lymphatic: States: no symptoms reported Past Medical History (General) - Patient Medical History Hx Seizures: Yes Hx Stroke: No Hx Dementia: Yes Hx Asthma: No Hx of COPD: No Hx Cardiac Disorders: Yes Hx Congestive Heart Failure: No Hx Pacemaker: No Hx Hypertension: No Hx Thyroid Disease: Yes Hx Diabetes: Yes Hx Gastroesophageal Reflux: Yes Hx Renal Disease: Yes Hx of HIV: No Hx MRSA: No - Vaccination History Hx Influenza Vaccination: Yes Hx Pneumococcal Vaccination: Yes - Social History Hx Tobacco Use: No Hx Alcohol Use: No Hx Substance Use: No Hx Substance Use Treatment: No Hx Depression: No Hx Physical Abuse: No Hx Emotional Abuse: No Family Medical History - Family History Mother Family History: Unknown Living Status: Hx Family Hypertension: Yes Hx Family Diabetes: Yes Physical Exam - Physical Exam General Appearance: Alert, Comfortable Eyes, Ears, Nose, Throat Exam: PERRL/EOMI, pharynx normal, other - dry oral mucosa Neck: non-tender, full range of motion Respiratory: no respiratory distress, decreased breath sounds Cardiovascular/Chest: regular rate, rhythm Gastrointestinal/Abdominal: normal bowel sounds, soft - morbid obesity, gastrostomy tube in epigastrium, minimal tenderness diffusely Extremity: pedal edema - 3-4 + Neurologic: normal mood/affect Skin Exam: warm/dry Departure - Departure Clinical Impression: Cardiomyopathy Qualifiers: Cardiomyopathy type: unspecified Qualified Code(s): I42.9 - Cardiomyopathy, unspecified CHF (congestive heart failure) Qualifiers: Congestive heart failure chronicity: chronic Disposition: Discharge to Home or Self Care Condition: Fair Departure Forms: ED Discharge - Pt. Copy, Patient Portal Self Enrollment Instructions: DI for Chest Pain Referrals: YINA WORLEY [Primary Care Provider] - 1-2 Weeks Home Medications: Ambulatory Orders ALPRAZolam [Xanax] 0.25 mg PO Q8H PRN 08/24/15 Atorvastatin Calcium [Lipitor] 10 mg PO BEDTIME 08/24/15 Diphenhydramine HCl [Complete Allergy] 25 mg PO Q4H PRN 08/24/15 Esomeprazole Magnesium [Nexium] 40 mg PO DAILY@0630 08/24/15 Guaifenesin 400 mg PO TID 08/24/15 Ipratropium/Albuterol [Duoneb] 3 ml NEB QID 08/24/15 Levetiracetam [Keppra] 500 mg PO BID 08/24/15 Levothyroxine Sodium 88 mcg PO DAILY@0700 08/24/15 Phenytoin Sodium Cap Extended [Dilantin Cap] 300 mg PO BID 08/24/15 Zolpidem Tartrate 5 mg PO BEDTIME PRN 08/24/15 Sulfamethoxazole-Trimethoprim [Bactrim Ds 800-160 mg] 1 tab PO BID #14 tab 08/01 Acetaminophen Suppository [Tylenol Suppository] 650 mg [place] Q6H PRN 08/02/16 Acetaminophen [Tylenol] 650 mg PO Q6H PRN 08/02/16 Balsam [place] Oil [Venelex] 1 applic TOP DAILY 08/02/16 Cyanocobalamin [B12] 1,000 mcg PO DAILY 08/02/16 Hypromellose (Ophth) [Isopto Tears] 1 drop BOTH_EYES TID PRN 08/02/16 Insulin Lispro [Humalog] 0 unit SC PRN PRN 08/02/16 Ipratropium/Albuterol [Duoneb] 3 ml INH Q6H PRN 08/02/16 Lidocaine 2% Mpf [Xylocaine 2% MPF] 2 ml INH Q4H PRN 08/02/16 Loperamide HCl [Imodium A-D] 2 mg PO Q4H PRN 08/02/16 Non-Formulary Medication 30 ml GT BID 08/02/16 Promethazine HCl 25 mg PO Q6H PRN 08/02/16
[2017-09-06 18:19] VITALS: BP 99/66
== END 2017-09-06 18:15 | disposition home or self-care (01) ==
LOC: ER 14:38
DX: I42.9 Cardiomyopathy, unspecified (principal); I50.9 Heart failure, unspecified; E11.9 Type 2 diabetes mellitus without complications; E07.9 Disorder of thyroid, unspecified; Z79.899 Other long term (current) drug therapy; Z79.4 Long term (current) use of insulin
CPT/HCPCS: 36415; 71045; 80053; 83880; 85025; J1940

== ENCOUNTER 2017-11-21 15:58 | Emergency (ER) | payer MEDICAID ==
--- NOTE | 2017-11-21 16:31 | ED.PDOC ---
History of Present Illness - General Chief Complaint: Neuro Symptoms/Deficits Stated Complaint: altered mental status Time Seen by Provider: 11/21/17 16:03 Source: patient, EMS, group home records Exam Limitations: clinical condition - History of Present Illness Initial Comments: Patient presents from [facility] with decreased level of consicousness. The group home staff told EMS that the patient wasn't answering questions and was not as alert as at her baseline. They thoight that she became agressive at one point. She arrives calm and knows her name and the year but thinks she is in [place]. It is also reported that she has had a dry cough for one week. No other complaints. Timing/Duration: resolved prior to arrival Severity: mild Improving Factors: nothing Worsening Factors: nothing Associated Symptoms: denies symptoms Allergies/Adverse Reactions: Allergies NO KNOWN ALLERGY Allergy (Verified 07/29/17 23:28) Home Medications: Ambulatory Orders Atorvastatin Calcium [Lipitor] 10 mg PO BEDTIME 08/24/15 Diphenhydramine HCl [Complete Allergy] 25 mg PO Q4H PRN 08/24/15 Esomeprazole Magnesium [Nexium] 40 mg PO DAILY@0630 08/24/15 Guaifenesin 400 mg PO TID 08/24/15 Ipratropium/Albuterol [Duoneb] 3 ml NEB Q6H 08/24/15 Levetiracetam [Keppra] 500 mg PO BID 08/24/15 Phenytoin Sodium Cap Extended [Dilantin Cap] 300 mg PO BID 08/24/15 Acetaminophen Suppository [Tylenol Suppository] 650 mg [place] Q6H PRN 08/02/16 Acetaminophen [Tylenol] 650 mg PO Q6H PRN 08/02/16 Cyanocobalamin [B12] 1,000 mcg PO DAILY 08/02/16 Insulin Lispro [Humalog] 0 unit SC PRN PRN 08/02/16 Ipratropium/Albuterol [Duoneb] 3 ml INH Q6H PRN 08/02/16 Lidocaine 2% Mpf [Xylocaine 2% MPF] 2 ml INH Q4H PRN 08/02/16 Loperamide HCl [Imodium A-D] 2 mg PO Q4H PRN 08/02/16 Promethazine HCl 25 mg PO Q6H PRN 08/02/16 [place] Oil [Venelex] 1 applic TOP DAILY 11/21/17 Bumetanide [Bumex] 1 mg PO DAILY 11/21/17 Cetirizine HCl 10 mg PO DAILY PRN 11/21/17 Chlorhexidine Gluconate (Mouth [Chlorhexidine Gluconate] 0.12 % MT BID 11/21/17 Dextran 70-Hypromellose [Artificial Tears 0.1-0.3 %] 1 remberto OP TID PRN 11/21/17 Digoxin [Lanoxin] 62.5 mcg PO DAILY 11/21/17 Furosemide [Lasix] 40 mg PO Q12H 11/21/17 Lactobacillus [Acidophilus Lactobacilli] 2 cap PO BID 11/21/17 Multiple Vitamins W/ Minerals [Multivitamin Adults] 1 tab PO DAILY 11/21/17 Naproxen Sodium 220 mg PO BID PRN 11/21/17 Nystatin Powder [Mycostatin] 15 gm TOP BID PRN 11/21/17 Sodium Chloride 1 gm PO DAILY 11/21/17 Review of Systems - Review of Systems Constitutional: States: no symptoms reported EENTM: States: no symptoms reported Respiratory: States: see HPI Cardiology: States: no symptoms reported Gastrointestinal/Abdominal: States: no symptoms reported Genitourinary: States: no symptoms reported Musculoskeletal: States: no symptoms reported Skin: States: no symptoms reported Neurological: States: no symptoms reported Endocrine: States: no symptoms reported Hematologic/Lymphatic: States: see HPI Past Medical History (General) - Patient Medical History Hx Seizures: Yes Hx Stroke: No Hx Dementia: Yes Hx Asthma: No Hx of COPD: No Hx Cardiac Disorders: Yes Hx Congestive Heart Failure: No Hx Pacemaker: No Hx Hypertension: No Hx Thyroid Disease: Yes Hx Diabetes: Yes Hx Gastroesophageal Reflux: Yes Hx Renal Disease: Yes Hx of HIV: No Hx MRSA: No - Vaccination History Hx Influenza Vaccination: Yes Hx Pneumococcal Vaccination: Yes - Social History Hx Tobacco Use: No Hx Alcohol Use: No Hx Substance Use: No Hx Substance Use Treatment: No Hx Depression: No Hx Physical Abuse: No Hx Emotional Abuse: No - Activities of Daily Living Assisted/Assisted Living (if applicable):: [facility] Family Medical History - Family History Mother Family History: Unknown Living Status: Hx Family Hypertension: Yes Hx Family Diabetes: Yes Physical Exam - Physical Exam General Appearance: Alert - x 2 Eye Exam: bilateral scleral icterus Ears, Nose, Throat: hearing grossly normal, normal ENT inspection, normal pharynx Neck: non-tender, full range of motion, supple Respiratory: chest non-tender, lungs clear, normal breath sounds, no respiratory distress Cardiovascular/Chest: normal peripheral pulses, regular rate, rhythm, no edema Gastrointestinal/Abdominal: normal bowel sounds, non tender, soft Back Exam: normal inspection Extremity: normal range of motion, pedal edema - 3+ pitting to mid-third of tibia Neurologic: alteration hand II-XII nml as tested, no motor/sensory deficits Skin Exam: normal color Lymphatic: no adenopathy Progress - Progress Progress: 11/21/17 17:29 T. bili 3.1. Patient transferred to inpatient at [facility]. Laboratory Tests 11/21/17 11/21/17 11/21/17 16:04 16:04 16:04 WBC 7.6 RBC 3.70 L Hgb 10.6 L Hct 32.8 L MCV 88.5 MCH 28.6 MCHC 32.3 L RDW 16.9 H Plt Count 274 MPV 7.4 Absolute Neuts (auto) 5.60 Absolute Lymphs (auto) 0.90 L Absolute Monos (auto) 0.70 Absolute Eos (auto) 0.30 Absolute Basos (auto) 0.10 Neutrophils % 73.7 Lymphocytes % 12.3 L Monocytes % 9.6 H Eosinophils % 3.5 Basophils % 0.9 PT 16.9 H INR 1.460 PTT (SP) 33.5 Sodium 133 L Potassium 4.1 Chloride 88 L Carbon Dioxide 35 H Anion Gap 14.1 BUN 56 H Creatinine 1.56 H BUN/Creatinine Ratio 35.9 H POC Glucose Random Glucose 56 L Serum Osmolality 279.5 Calcium 7.9 L Phosphorus 3.1 Magnesium 2.0 Total Bilirubin 3.1 H* AST 21 ALT 10 Alkaline Phosphatase 114 Creatine Kinase 7 L CK-MB (CK-2) 0.3 CK-MB (CK-2) % Not Reportable Troponin I 0.03 B-Natriuretic Peptide Serum Total Protein 7.6 Albumin 2.0 L Globulin 5.6 H Albumin/Globulin Ratio 0.4 L TSH 4.19 Thyroxine (T4) 4.49 L Urine Color Urine Appearance Urine pH Ur Specific [place] Urine Protein Urine Glucose (UA) Urine Ketones Urine Blood Urine Nitrite Urine Bilirubin Urine Urobilinogen Ur Leukocyte Esterase Urine RBC Urine WBC Ur Epithelial Cells Urine Bacteria Salicylates < 4.0 Acetaminophen < 10.0 L 11/21/17 11/21/17 11/21/17 16:05 16:06 16:27 WBC RBC Hgb Hct MCV MCH MCHC RDW Plt Count MPV Absolute Neuts (auto) Absolute Lymphs (auto) Absolute Monos (auto) Absolute Eos (auto) Absolute Basos (auto) Neutrophils % Lymphocytes % Monocytes % Eosinophils % Basophils % PT INR PTT (SP) Sodium Potassium Chloride Carbon Dioxide Anion Gap BUN Creatinine BUN/Creatinine Ratio POC Glucose 70 Random Glucose Serum Osmolality Calcium Phosphorus Magnesium Total Bilirubin AST ALT Alkaline Phosphatase Creatine Kinase CK-MB (CK-2) CK-MB (CK-2) % Troponin I B-Natriuretic Peptide 4140.0 H* Serum Total Protein Albumin Globulin Albumin/Globulin Ratio TSH Thyroxine (T4) Urine Color Yellow Urine Appearance Clear Urine pH 5.0 Ur Specific [place] 1.010 Urine Protein 30 Urine Glucose (UA) Negative Urine Ketones Trace Urine Blood Moderate H Urine Nitrite Negative Urine Bilirubin Small H Urine Urobilinogen 0.2 Ur Leukocyte Esterase Small H Urine RBC 10-20 H Urine WBC 5-10 H Ur Epithelial Cells 0 Urine Bacteria 1+ Salicylates Acetaminophen Departure - Departure Clinical Impression: Hyperbilirubinemia Disposition: Transfer to Hospital Condition: Fair Departure Forms: ED Discharge - Pt. Copy, Patient Portal Self Enrollment Diet: other - NPO Activity: as per physical therapy Referrals: YINA WORLEY [Primary Care Provider] - 1-2 Weeks Home Medications: Ambulatory Orders Atorvastatin Calcium [Lipitor] 10 mg PO BEDTIME 08/24/15 Diphenhydramine HCl [Complete Allergy] 25 mg PO Q4H PRN 08/24/15 Esomeprazole Magnesium [Nexium] 40 mg PO DAILY@0630 08/24/15 Guaifenesin 400 mg PO TID 08/24/15 Ipratropium/Albuterol [Duoneb] 3 ml NEB Q6H 08/24/15 Levetiracetam [Keppra] 500 mg PO BID 08/24/15 Phenytoin Sodium Cap Extended [Dilantin Cap] 300 mg PO BID 08/24/15 Acetaminophen Suppository [Tylenol Suppository] 650 mg [place] Q6H PRN 08/02/16 Acetaminophen [Tylenol] 650 mg PO Q6H PRN 08/02/16 Cyanocobalamin [B12] 1,000 mcg PO DAILY 08/02/16 Insulin Lispro [Humalog] 0 unit SC PRN PRN 08/02/16 Ipratropium/Albuterol [Duoneb] 3 ml INH Q6H PRN 08/02/16 Lidocaine 2% Mpf [Xylocaine 2% MPF] 2 ml INH Q4H PRN 08/02/16 Loperamide HCl [Imodium A-D] 2 mg PO Q4H PRN 08/02/16 Promethazine HCl 25 mg PO Q6H PRN 08/02/16 Balsam [place] Oil [Venelex] 1 applic TOP DAILY 11/21/17 Bumetanide [Bumex] 1 mg PO DAILY 11/21/17 Cetirizine HCl 10 mg PO DAILY PRN 11/21/17 Chlorhexidine Gluconate (Mouth [Chlorhexidine Gluconate] 0.12 % MT BID 11/21/17 Dextran 70-Hypromellose [Artificial Tears 0.1-0.3 %] 1 remberto OP TID PRN 11/21/17 Digoxin [Lanoxin] 62.5 mcg PO DAILY 11/21/17 Furosemide [Lasix] 40 mg PO Q12H 11/21/17 Lactobacillus [Acidophilus Lactobacilli] 2 cap PO BID 11/21/17 Multiple Vitamins W/ Minerals [Multivitamin Adults] 1 tab PO DAILY 11/21/17 Naproxen Sodium 220 mg PO BID PRN 11/21/17 Nystatin Powder [Mycostatin] 15 gm TOP BID PRN 11/21/17 Sodium Chloride 1 gm PO DAILY 11/21/17
--- NOTE | 2017-11-21 17:18 | RAD ---
EXAM DESCRIPTION: Chest,1 View CLINICAL HISTORY: 57 years Female cough COMPARISON: 09/06/2017 and 07/07/2017. FINDINGS: Stable cardiomegaly. Enlargement of the right hilum likely from enlargement of the right main pulmonary artery. The appearance was similar on the previous chest x-ray study from 07/07/2017. Three month follow-up chest x-ray or chest CT is recommended to better evaluate. There is mild infiltrate at the lung bases likely from atelectasis but changes from pneumonia not completely excluded. IMPRESSION: Enlargement of the right hilum which could be from an enlarged pulmonary artery or a mass lesion. Three month follow-up or chest CT is recommended. Mild opacity at the lung bases likely from mild atelectasis. Changes from pneumonia are not completely excluded. Electronically signed by: Dre Salazar MD 11/21/2017 5:16 PM CDT
[2017-11-21 18:06] VITALS: BP 105/69; TEMP 96.4; O2SAT 95
== END 2017-11-21 18:06 | disposition short-term general hospital (02) ==
LOC: ER 16:00
DX: E80.6 Other disorders of bilirubin metabolism (principal); F03.90 Unspecified dementia, unspecified severity, without behavioral disturbance, psychotic disturbance, mood disturbance, and anxiety; E07.9 Disorder of thyroid, unspecified; E11.9 Type 2 diabetes mellitus without complications; K21.9 Gastro-esophageal reflux disease without esophagitis; Z86.73 Personal history of transient ischemic attack (TIA), and cerebral infarction without residual deficits; Z79.4 Long term (current) use of insulin